=== PATIENT | female | born 1985 | race Caucasian/White ===

== ENCOUNTER 2018-02-06 18:26 | Emergency (ER) | payer OTHER ==
[~2018-02-06] VITALS: Ht 157.5 cm; Wt 117.9 kg
[2018-02-06] MEDS ORDERED: MAXALT10 MG PO (18:57)
[2018-02-06] MEDS ORDERED: BACTRIM DS TAB1 EACH PO (19:59)
[2018-02-06] MEDS ORDERED: KEFLEX500 M1 PO (19:59)
[2018-02-06 20:13] VITALS: BP 131/98
== END 2018-02-06 20:14 | disposition home or self-care (01) ==
LOC: M.ERS 18:26
DX: L03.314 Cellulitis of groin (principal); Z88.8 Allergy status to other drugs, medicaments and biological substances; L73.9 Follicular disorder, unspecified